=== PATIENT | female | born 1995 | race Caucasian/White ===

== ENCOUNTER 2020-12-12 10:24 | Inpatient (IN) | payer OTHER ==
[~2020-12-12] VITALS: Ht 175.3 cm; Wt 60.8 kg
--- NOTE | 2020-12-12 15:06 | PR ---
[facility] [address] [facility] [place], [place] [address] Signed Progress Notes IP Datetime Report Generated by CPN: 12/12/2020 15:05 PROGRESS NOTES: [id number] Impression: Normal Progression of Labor Procedures: Artificial ROM Plan: Continue Present Management; Anticipate Vaginal Delivery VITAL SIGNS: [id number] Vital Signs: Reviewed; Within Normal Limits EXAM: [id number] Dilatation: 6.0 Effacement: 90 Station: -2 Contractions: every 3-5 minutes MEMBRANES: [id number] Membranes Status: Ruptured Comments: Tolerating contracitons well, still considering Epidural later, discussed not waiting too long, as it may not work as well. FETUS A: [id number] FHR Baseline: 130 Variability: Moderate 6-25bpm Accelerations: 15X15 FETUS B: [id number] Signing Physician: Kaiden Yun MD Copies: ~ *Electronically Signed* 12/12/20 1505 KAIDEN YUN MD PATIENT NAME: JASON DAVIS PROGRESS NOTE DATE OF : [birth year] PHYSICIAN: KAIDEN YUN MD RPT #: [id number] REPORT IS CONFIDENTIAL AND NOT TO BE RELEASED WITHOUT AUTHORIZATION
--- NOTE | 2020-12-13 12:09 | PR ---
[facility] [address] [place] [address] Signed PP Progress Notes Datetime Report Generated by CPN: 12/13/2020 12:09 SUBJECTIVE: [id number] Pain: Within Normal Limits Nausea/Vomiting: Denies Vital Signs: [id number] Vital Signs: Reviewed; Within Normal Limits Notable Details: PP Hgb/Hct = 8.3/26.1 Abdomen/Uterus: Normal Lochia: Normal Extremities: Normal IMPRESSION/PLAN/PROCEDURES: [id number] Impression: Normal Progression Other Impression: PP Anemia Plan: Discharge Procedures: None Progress Notes: Doing well, without complaint, minimal bleeding, wants to go home. Signing Physician: Kaiden Yun MD Copies: ~ *Electronically Signed* 12/13/20 1209 KAIDEN YUN MD PATIENT NAME: JASON DAVIS PROGRESS NOTE DATE OF : 96 PHYSICIAN: KAIDEN YUN MD RPT #: [id number] REPORT IS CONFIDENTIAL AND NOT TO BE RELEASED WITHOUT AUTHORIZATION
== END 2020-12-13 15:10 | disposition home or self-care (01) | DRG 807 ==
LOC: FBCO → FBC 12:05 → FBCO 03-29 13:35
PROVIDERS: ADMIT General Practice; ATTEND General Practice
PROC: 10E0XZZ Delivery of Products of Conception, External Approach (ICD-10-PCS; principal; 2020-12-12)
PROC: 10907ZC Drainage of Amniotic Fluid, Therapeutic from Products of Conception, Via Natural or Artificial Opening (ICD-10-PCS; 2020-12-12)
PROC: 00HU33Z Insertion of Infusion Device into Spinal Canal, Percutaneous Approach (ICD-10-PCS; 2020-12-12)
PROC: 3E0R3BZ Introduction of Anesthetic Agent into Spinal Canal, Percutaneous Approach (ICD-10-PCS; 2020-12-12)
PROC: 10D17Z9 Manual Extraction of Products of Conception, Retained, Via Natural or Artificial Opening (ICD-10-PCS; 2020-12-12)
PROC: 0HQ9XZZ Repair Perineum Skin, External Approach (ICD-10-PCS; 2020-12-12)
PROC: 3E0234Z Introduction of Serum, Toxoid and Vaccine into Muscle, Percutaneous Approach (ICD-10-PCS; 2020-12-13)
DX: O99.824 Streptococcus B carrier state complicating childbirth (principal); Z37.0 Single live birth; O36.5930 Maternal care for other known or suspected poor fetal growth, third trimester, not applicable or unspecified; O77.0 Labor and delivery complicated by meconium in amniotic fluid; O70.0 First degree perineal laceration during delivery; Z20.822 Contact with and (suspected) exposure to COVID-19; Z3A.39 39 weeks gestation of pregnancy; Z23 Encounter for immunization; O99.02 Anemia complicating childbirth; D50.9 Iron deficiency anemia, unspecified; O73.0 Retained placenta without hemorrhage
CPT/HCPCS: 01960; 36415; 59025; 85027; 90716; A9270; G0463; J0690; J2540; J2590; J2795; J7121; U0003

== ENCOUNTER 2025-06-16 13:08 | Emergency (ER) | payer OTHER ==
[~2025-06-16] VITALS: Ht 182.9 cm; Wt 56.8 kg
[2025-06-16] MEDS ORDERED: PRENATA CHEWAB1 EACH PO (13:27)
[2025-06-16] MEDS ORDERED: IRON236 MG PO (13:27)
[2025-06-16 15:20] LABS: ABO O; RH POSITIVE
[2025-06-16 15:59] VITALS: BP 113/70
== END 2025-06-16 17:05 | disposition home or self-care (01) ==
LOC: ED 13:08
PROVIDERS: Emergency Medicine
DX: O99.891 Other specified diseases and conditions complicating pregnancy (principal); M54.50 Low back pain, unspecified; Z3A.01 Less than 8 weeks gestation of pregnancy; Z79.899 Other long term (current) drug therapy
CPT/HCPCS: 36415; 76801; 76817; 84702; 84703; 86900; 86901; 99284-25